=== PATIENT | female | born 1995 | race Two or more races ===

== ENCOUNTER 2022-07-19 17:11 | Emergency (ER) | payer MEDICAID, OTHER ==
[~2022-07-19] VITALS: Ht 170.2 cm; Wt 57.0 kg
[2022-07-19 17:52] LABS: Basophils # (auto) 0 10 ^3/uL (0-0.2); Basophils % (auto) 0.4 % (0.0-2.0); Eosinophils # (auto) 0.1 10 ^3/uL (0-0.8); Eosinophils % (auto) 2.2 % (0.0-7.0); Lymphocytes # (auto) 2.4 10 ^3/uL (0.4-5.4); Lymphocytes % (auto) 36.5 % (10.0-50.0); Mean Corpuscular Hemoglobin 29.8 pg (28.0-32.0); Mean Corpuscular Hgb Conc. 33.3 g/dL (32.0-36.0); Mean Corpuscular Volume 89.3 fL (80.0-100.0); Monocytes # (auto) 0.4 10 ^3/uL (0-1.3); Monocytes % (auto) 6.8 % (0.0-12.0); Neutrophils # (auto) 3.6 10 ^3/uL (1.6-8.6); Neutrophils % (auto) 54.1 % (37.0-80.0); Nucleated Red Blood Cells % 0.2 %; Red Blood Cells 4.03 10^6/uL (4.0-5.20); Red Cell Distribution Width 19.4 % (11.8-14.3); White Blood Cell 6.6 10^3/uL (4.4-10.8)
[2022-07-19 18:10] LABS: Albumin 3.5 g/dL (3.4-5.0); Calcium 8.8 mg/dL (8.5-10.1); Potassium 4.5 mmol/L (3.5-5.1)
[2022-07-19 18:12] LABS: BUN/Creatinine Ratio 13.4
[2022-07-19 18:15] LABS: Bilirubin, Total 0.3 mg/dL (0.2-1.0); Total Protein 7.2 g/dL (6.4-8.2)
[2022-07-19 20:16] LABS: Urine Bacteria FEW /hpf (None Seen); Urine Blood 3+ /uL (Negative); Urine Mucus FEW (None Seen); Urine Specific Gravity 1.032 (1.001-1.035); Urine WBC 1 /hpf (0 - 5)
[2022-07-19 21:14] VITALS: BP 109/65
== END 2022-07-19 21:15 | disposition home or self-care (01) ==
LOC: ER 17:11
DX: O03.4 Incomplete spontaneous abortion without complication (principal); Z3A.01 Less than 8 weeks gestation of pregnancy
CPT/HCPCS: 36415; 76801; 76817; 80053; 81001; 84702; 85025; 86850; 86900; 86901

== ENCOUNTER 2022-09-13 23:04 | Emergency (ER) | payer MEDICAID ==
[~2022-09-13] VITALS: Ht 170.2 cm; Wt 126.7 kg
[2022-09-14 00:29] LABS: Urine Bacteria NONE SEEN /hpf (None Seen); Urine Blood Negative /uL (Negative); Urine Specific Gravity 1.021 (1.001-1.035); Urine WBC <1 /hpf (0 - 5)
[2022-09-14 00:45] LABS: Basophils # (auto) 0 10 ^3/uL (0-0.2); Basophils % (auto) 0.4 % (0.0-2.0); Eosinophils # (auto) 0.2 10 ^3/uL (0-0.8); Eosinophils % (auto) 2.2 % (0.0-7.0); Hematocrit 35.2 % (36.0-46.0); Hemoglobin 11.8 g/dL (12.2-16.2); Lymphocytes # (auto) 3.2 10 ^3/uL (0.4-5.4); Mean Corpuscular Hemoglobin 30.1 pg (28.0-32.0); Mean Corpuscular Hgb Conc. 33.4 g/dL (32.0-36.0); Mean Corpuscular Volume 90.2 fL (80.0-100.0); Monocytes # (auto) 0.6 10 ^3/uL (0-1.3); Monocytes % (auto) 7.5 % (0.0-12.0); Neutrophils # (auto) 4.2 10 ^3/uL (1.6-8.6); Neutrophils % (auto) 50.9 % (37.0-80.0); Nucleated Red Blood Cells % 0.1 %; Red Blood Cells 3.91 10^6/uL (4.0-5.20); Red Cell Distribution Width 15.7 % (11.8-14.3); White Blood Cell 8.2 10^3/uL (4.4-10.8)
[2022-09-14 01:10] LABS: Albumin 3.4 g/dL (3.4-5.0); BUN/Creatinine Ratio 16.9 (10.0-20.0); Calcium 8.6 mg/dL (8.5-10.1); Potassium 4.1 mmol/L (3.5-5.1)
[2022-09-14 01:12] LABS: Bilirubin, Total 0.3 mg/dL (0.2-1.0); Total Protein 7.7 g/dL (6.4-8.2)
[2022-09-14] MEDS ORDERED: OXYCODONE W/ ACETAMINOPHEN 5/325MG TABLET PO ONE (07:00)
[2022-09-14 07:20] VITALS: BP 118/81
== END 2022-09-14 07:26 | disposition home or self-care (01) ==
LOC: ER 23:04
DX: N83.202 Unspecified ovarian cyst, left side (principal)
CPT/HCPCS: 36415; 74176; 80053; 81001; 81025; 85025

== ENCOUNTER 2023-06-20 12:10 | Observation (INO) | payer MEDICAID ==
[2023-06-20] MEDS ORDERED: PREN-96 PO (13:09)
== END 2023-06-20 13:30 | disposition home or self-care (01) ==
LOC: LDRP 12:10 → UNDOADMOB 12:10 → LDRP 12:16 → UNDODISOB 13:30
PROVIDERS: ADMIT Obstetrics & Gynecology; ATTEND Obstetrics & Gynecology
DX: O26.893 Other specified pregnancy related conditions, third trimester (principal); R19.7 Diarrhea, unspecified; Z3A.36 36 weeks gestation of pregnancy
CPT/HCPCS: 59025; 81002; G0378

== ENCOUNTER 2023-07-01 04:35 | Observation (INO) | payer MEDICAID ==
[~2023-07-01 04:35] MED LIST: PREN-96 PO
[2023-07-01] MEDS ORDERED: PREN-96 PO (07:30)
[2023-07-01] MEDS ORDERED: NITR50CA24 PO (07:30)
[2023-07-08] MEDS ORDERED: PRED20TA2 PO (17:03)
[2023-07-08] MEDS ORDERED: HYDR-4902 PO (17:03)
[2023-07-08] MEDS ORDERED: ACYC1TAB2 PO ×2 (17:03)
[2023-07-08] MEDS ORDERED: IBUP-1455 PO (17:03)
[2023-07-11] MEDS ORDERED: DOCU-265 PO (02:21)
[2023-07-11] MEDS ORDERED: FERR30CA PO (02:21)
== END 2023-07-01 07:41 | disposition home or self-care (01) ==
LOC: LDRP 04:35
PROVIDERS: ADMIT Obstetrics & Gynecology; ATTEND Obstetrics & Gynecology
DX: O26.893 Other specified pregnancy related conditions, third trimester (principal); R10.9 Unspecified abdominal pain; Z3A.38 38 weeks gestation of pregnancy
CPT/HCPCS: 59025; 81002; 94760; G0378

== ENCOUNTER → 2023-09-19 | Outpatient (CLI) | payer MEDICAID ==
[~2023-09-19] MED LIST changes: +DOCU-265 PO; +FERR30CA PO; +HYDR-4902 PO; +IBUP-1455 PO; +PRED20TA2 PO
== END | disposition home or self-care (01) ==
LOC: LAB 13:15
PROVIDERS: ATTEND Obstetrics & Gynecology
DX: R87.619 Unspecified abnormal cytological findings in specimens from cervix uteri (principal)

== ENCOUNTER → 2024-08-14 | Outpatient (CLI) | payer MEDICAID | END | disposition home or self-care (01) | LOC: LAB 10:30 | PROVIDERS: ATTEND Obstetrics & Gynecology | DX: D48.5 Neoplasm of uncertain behavior of skin (principal); R89.6 Abnormal cytological findings in specimens from other organs, systems and tissues ==